=== PATIENT | female | born 1990 | race Two or more races ===

== ENCOUNTER 2025-05-15 16:32 | Emergency (ER) | payer OTHER | END 2025-05-15 17:58 | disposition left against medical advice (07) | LOC: ER 16:32 | DX: Z53.21 Procedure and treatment not carried out due to patient leaving prior to being seen by health care provider (principal) ==

== ENCOUNTER 2025-05-15 18:40 | Inpatient (IN) | payer OTHER ==
[~2025-05-15] VITALS: Ht 157.5 cm; Wt 60.8 kg
[2025-05-15 18:31] VITALS: BP 100/66
[2025-05-15] MEDS ORDERED: MAGNESIUM SULFATE IN WATER 500 ML IV SCH (19:30)
[2025-05-15] MEDS ORDERED: MORPHINE SULFATE 4 MG/ML CARTRIDGE IV PRN (19:30)
[2025-05-15] MEDS ORDERED: RINGERS SOLUTION,LACTATED 1,000 ML IV SCH (19:30)
[2025-05-15 19:45] LABS: BASO % 0.3 % (0.1-1.2); EOS # 0.06 (0.04-0.54); EOS % 0.5 % (0.7-7.0); LYMPH # 1.30 (1.18-3.74); LYMPH % 11.2 % (19.3-53.1); MEAN PLATELET VOLUME 10.40 fl (9.4-12.4); MONO # 0.87 (0.24-0.82); MONO % 7.5 % (4.7-12.5); NEUT # 9.32 (1.56-6.13); NEUT % 80.0 % (34.0-71.1); RED CELL DISTRIBUTION WIDTH 12.8 % (11.6-14.4)
[2025-05-15 19:49] LABS: URINE APPEARANCE Clear; URINE BILIRRUBIN Negative (NEGATIVE); URINE BLOOD Negative; URINE COLOR Yellow; URINE GLUCOSE Negative (NEGATIVE); URINE KETONE Trace (NEGATIVE); URINE LEUKOCYTE Negative; URINE NITRATE Negative; URINE PROTEIN Negative (NEGATIVE); URINE UROBILINOGEN 1.0 E.U./dl
[2025-05-15 19:52] LABS: URINE BACTERIA 1121.9 uL (0.0-1933); URINE EPITHELIAL CELLS 15.6 uL (0.0-38.8); URINE WBC 16.9 uL (0.0-23.2)
[2025-05-15 20:35] LABS: URINE CAST 0.00 uL (0.0-1.40); URINE RBC 0.7 uL (0.0-20.8)
[2025-05-15 23:26] VITALS: BP 95/58
[2025-05-16] VITALS (7 sets, daily range): BP systolic 99–109; BP diastolic 63–71; O2SAT 97
[2025-05-16] MEDS ORDERED: ONDANSETRON HCL 4 MG in DEXTROSE 5 % IN WATER 50 ML IV SCH (09:00)
[2025-05-16] MEDS ORDERED: ONDANSETRON HCL 2 MG/ML VIAL IV SCH (09:00)
[2025-05-16] MEDS ORDERED: MAGNESIUM SULFATE IV SCH (20:30)
[2025-05-16] MEDS ORDERED: [UNRECOGNIZED DRUG - OTHER] IV SCH (20:30)
[2025-05-17] VITALS (8 sets, daily range): BP systolic 94–109; BP diastolic 61–73
[2025-05-17] MEDS ORDERED: MAGNESIUM HYDROXIDE 30 ML BLIST.PACK PO NR (08:00)
[2025-05-17] MEDS ORDERED: BISACODYL 5 MG TABLET.EC PO PRN (08:00)
[2025-05-17] MEDS ORDERED: INDOMETHACIN 50 MG CAPSULE PO NR (11:00)
[2025-05-17] MEDS ORDERED: INDOMETHACIN 25 MG CAPSULE PO SCH (12:00)
[2025-05-18 03:05] VITALS: BP 94/58
[2025-05-18 06:20] VITALS: BP 96/62; O2SAT 97
[2025-05-18 11:26] VITALS: BP 87/57
[2025-05-18] MEDS ORDERED: PRENATABS RX T1 EACH PO (12:41)
[2025-05-18 15:29] VITALS: BP 94/64
[2025-05-18 19:30] VITALS: BP 117/79
[2025-05-18 23:55] VITALS: BP 100/65
[2025-05-19 04:30] VITALS: BP 99/63
[2025-05-19 06:14] VITALS: BP 99/63; O2SAT 97
== END 2025-05-19 10:28 | disposition home or self-care (01) | DRG 833 ==
LOC: LDR 18:40
PROVIDERS: ADMIT Obstetrics & Gynecology; ATTEND Obstetrics & Gynecology
PROC: 4A1HXCZ Monitoring of Products of Conception, Cardiac Rate, External Approach (ICD-10-PCS; principal; 2025-05-15)
PROC: BY4CZZZ Ultrasonography of Second Trimester, Single Fetus (ICD-10-PCS; 2025-05-16)
PROC: BU4CZZZ Ultrasonography of Uterus and Ovaries (ICD-10-PCS; 2025-05-16)
DX: O34.12 Maternal care for benign tumor of corpus uteri, second trimester (principal); D25.9 Leiomyoma of uterus, unspecified; Z3A.20 20 weeks gestation of pregnancy

== ENCOUNTER 2025-06-04 15:51 | Outpatient (CLI) | payer OTHER ==
[~2025-06-04] VITALS: Ht 157.5 cm; Wt 62.6 kg
[2025-06-04 15:04] VITALS: BP 102/66
[~2025-06-04 15:51] MED LIST: PRENATABS RX T1 EACH PO
[2025-06-04] MEDS ORDERED: GUAIFENESIN 600 MG TABLET.SA PO SCH (17:08)
[2025-06-04 17:48] LABS: BASO % 0.3 % (0.1-1.2); EOS # 0.18 (0.04-0.54); EOS % 1.5 % (0.7-7.0); LYMPH # 1.41 (1.18-3.74); LYMPH % 11.9 % (19.3-53.1); MEAN PLATELET VOLUME 9.70 fl (9.4-12.4); MONO # 0.69 (0.24-0.82); MONO % 5.8 % (4.7-12.5); NEUT # 9.42 (1.56-6.13); NEUT % 79.7 % (34.0-71.1); RED CELL DISTRIBUTION WIDTH 12.5 % (11.6-14.4)
[2025-06-04 17:58] LABS: COVID-19 AG NEGATIVE (NEGATIVE)
[2025-06-04 18:14] LABS: ALT/SGPT 41.0 U/L (12-78); AST/SGOT 25.0 U/L (15-37); BILIRUBIN TOTAL 0.19 mg/dL (0.3-1.2); BUN CREA RATIO 26.0 (7.0-25.0); CREATININE SERUM 0.47 mg/dL (0.55-1.02); GFR 149.94; GLOBULINA 4.0 G/DL (2.4-3.5); GLUCOSE FASTING 105.0 mg/dL (65-100); OSMOLALITY SERUM 278.0 MOSM/KG (275-295)
[2025-06-04] MEDS ORDERED: AZITHROMYCIN 500 MG TABLET PO STA (18:46)
[2025-06-04 19:01] VITALS: BP 102/66
== END 2025-06-04 19:21 | disposition home or self-care (01) ==
LOC: OBS/DEL 15:51
PROVIDERS: ATTEND Obstetrics & Gynecology Gynecology
DX: O36.8120 Decreased fetal movements, second trimester, not applicable or unspecified (principal); Z3A.22 22 weeks gestation of pregnancy

== ENCOUNTER 2025-08-19 10:09 | Outpatient (CLI) | payer OTHER | END 2025-08-19 10:50 | disposition home or self-care (01) | LOC: NST 10:09 | PROVIDERS: ATTEND Obstetrics & Gynecology Maternal & Fetal Medicine | DX: Z34.83 Encounter for supervision of other normal pregnancy, third trimester (principal) ==

== ENCOUNTER 2025-09-17 20:15 | Outpatient (CLI) | payer OTHER ==
[2025-09-17 19:30] VITALS: BP 130/82
[2025-09-17 23:15] VITALS: BP 105/71
[2025-09-18 04:22] VITALS: BP 122/80
[2025-09-18 07:52] VITALS: BP 124/82
[2025-09-18 09:16] VITALS: BP 124/82
== END 2025-09-18 09:31 | disposition home or self-care (01) ==
LOC: OBS/DEL 20:15
PROVIDERS: ATTEND Obstetrics & Gynecology Gynecology
DX: O26.893 Other specified pregnancy related conditions, third trimester (principal); Z3A.38 38 weeks gestation of pregnancy

== ENCOUNTER 2025-09-20 03:08 | Inpatient (IN) | payer OTHER ==
[~2025-09-20] VITALS: Ht 157.5 cm; Wt 76.7 kg
[2025-09-20 01:50] VITALS: BP 120/78; O2SAT 99
[2025-09-20 03:43] VITALS: BP 116/82
[2025-09-20 07:15] VITALS: BP 119/72
[2025-09-20 11:58] LABS: BASO % 0.1 % (0.1-1.2); EOS # 0.04 (0.04-0.54); EOS % 0.2 % (0.7-7.0); LYMPH # 1.19 (1.18-3.74); LYMPH % 7.4 % (19.3-53.1); MEAN PLATELET VOLUME 12.50 fl (9.4-12.4); MONO # 1.05 (0.24-0.82); MONO % 6.5 % (4.7-12.5); NEUT # 13.76 (1.56-6.13); NEUT % 85.1 % (34.0-71.1); RED CELL DISTRIBUTION WIDTH 13.0 % (11.6-14.4)
[2025-09-20] MEDS ORDERED: OXYTOCIN 500 ML IV NR (12:00)
[2025-09-20] MEDS ORDERED: FAMOTIDINE/PF 20 MG in 0.9 % SODIUM CHLORIDE 8 ML IV PUSH PRN (12:00)
[2025-09-20 12:20] LABS: INR < 0.93
[2025-09-20 12:22] VITALS: BP 120/78
[2025-09-20] MEDS ORDERED: RINGERS SOLUTION,LACTATED 1,000 ML IV SCH (12:30)
[2025-09-20 12:42] LABS: ALT/SGPT 70.0 U/L (12-78); AST/SGOT 35.0 U/L (15-37); BILIRUBIN TOTAL 0.43 mg/dL (0.3-1.2); BUN CREA RATIO 23.0 (7.0-25.0); CREATININE SERUM 0.44 mg/dL (0.55-1.02); GFR 161.79; GLOBULINA 4.0 G/DL (2.4-3.5); GLUCOSE FASTING 81.0 mg/dL (65-100); OSMOLALITY SERUM 274.0 MOSM/KG (275-295)
[2025-09-20] MEDS ORDERED: MORPHINE SULFATE 4 MG/ML VIAL IV ONE (12:45)
[2025-09-20 20:30] VITALS: BP 120/67
[2025-09-20] MEDS ORDERED: OXYTOCIN 1,000 ML IV ONE (22:00)
[2025-09-20] MEDS ORDERED: OXYTOCIN 10 UNITS/ML VIAL IV ONE (22:15)
[2025-09-20] MEDS ORDERED: ERYTHROMYCIN BASE OPHT 1GM EACH TUBE OP ONE (22:15)
[2025-09-20] MEDS ORDERED: CEFAZOLIN SODIUM 1,000 MG VIAL IV SCH (22:15)
[2025-09-20] MEDS ORDERED: CITRIC ACID/SODIUM CITRATE 30 ML BLIST.PACK PO SCH (22:15)
[2025-09-21] MEDS ORDERED: KETOROLAC TROMETHAMINE 30 MG VIAL IV SCH
[2025-09-21] MEDS ORDERED: MORPHINE SULFATE 4 MG/ML VIAL IV SCH (01:00)
[2025-09-21 04:33] LABS: BASO % 0.1 % (0.1-1.2); EOS # 0.00 (0.04-0.54); EOS % 0.0 % (0.7-7.0); LYMPH # 0.85 (1.18-3.74); LYMPH % 4.3 % (19.3-53.1); MEAN PLATELET VOLUME 12.60 fl (9.4-12.4); MONO # 1.37 (0.24-0.82); MONO % 7.0 % (4.7-12.5); NEUT # 17.22 (1.56-6.13); NEUT % 87.8 % (34.0-71.1); RED CELL DISTRIBUTION WIDTH 12.9 % (11.6-14.4)
[2025-09-21 04:45] VITALS: BP 114/71; O2SAT 100
[2025-09-21] MEDS ORDERED: ACETAMINOPHEN 500 MG GEL..CAP PO SCH (06:00)
[2025-09-21 08:47] VITALS: BP 119/77; O2SAT 100
[2025-09-21] MEDS ORDERED: SIMETHICONE 125 MG CAPSULE PO SCH (09:00)
[2025-09-21] MEDS ORDERED: PNV,CALCIUM 72/IRON/FOLIC ACID 1 TAB TABLET PO SCH (09:00)
[2025-09-21] MEDS ORDERED: GABAPENTIN 300 MG CAPSULE PO SCH (09:00)
[2025-09-21] MEDS ORDERED: DOCUSATE SODIUM 100MG CAP PO SCH (09:00)
[2025-09-21 17:05] VITALS: BP 109/75
[2025-09-22 01:49] VITALS: BP 104/69; O2SAT 96
[2025-09-22 08:00] VITALS: BP 107/71
== END 2025-09-22 13:25 | disposition home or self-care (01) | DRG 788 ==
LOC: OBS/DEL 03:08 → OB/GYN 11:36 → LDR 11:36 → OB/GYN 09-21 01:44
PROVIDERS: ADMIT Obstetrics & Gynecology Gynecology; ATTEND Obstetrics & Gynecology Gynecology
PROC: 4A1HXCZ Monitoring of Products of Conception, Cardiac Rate, External Approach (ICD-10-PCS; 2025-09-20)
PROC: 10D00Z1 Extraction of Products of Conception, Low, Open Approach (ICD-10-PCS; principal; 2025-09-20 23:00)
DX: O82 Encounter for cesarean delivery without indication (principal); O62.1 Secondary uterine inertia; O33.8 Maternal care for disproportion of other origin; Z3A.38 38 weeks gestation of pregnancy; Z37.0 Single live birth